=== PATIENT | female | born 1970 | race Two or more races ===

== ENCOUNTER 2017-05-22 10:13 | Emergency (ER) | payer SELFPAY ==
[2017-05-22 10:45] LABS: ADD MAN DIFF? NO
[2017-05-22] MEDS: ONDANSETRON PF 4 MG/2 ML VIAL. IV ×2 (10:53)
[2017-05-22] MEDS: fentaNYL PF VIAL 100 MCG/2 ML VIAL IV ×2 (10:54)
[2017-05-22 10:56] LABS: ANION GAP 11 (6-14); BLOOD UREA NITROGEN 10 mg/dL (7-20); CARBON DIOXIDE 24 mmol/L (21-32); CHLORIDE 102 mmol/L (98-107); CREATININE 0.7 mg/dL (0.6-1.0); GFR 90.5; GLUCOSE 128 mg/dL (70-99); POTASSIUM 3.9 mmol/L (3.5-5.1); SODIUM 137 mmol/L (136-145)
[2017-05-22 10:57] LABS: LIPASE 92 U/L (73-393)
[2017-05-22 11:02] LABS: BASO # 0.1 x10^3/uL (0.0-0.2); BASO % 1 % (0-3); BILIRUBIN,URINE NEGATIVE (NEG); CLARITY,URINE CLEAR; COLOR,URINE YELLOW; EOS # 0.2 x10^3/uL (0.0-0.7); EOS % 2 % (0-3); GLUCOSE,URINE NEGATIVE (NEG); HEMATOCRIT 41.9 % (36.0-47.0); HEMOGLOBIN 14.4 g/dL (12.0-15.5); LYMPH # 2.6 x10^3/uL (1.0-4.8); LYMPH % 26 % (24-48); MEAN CORPUSCULAR HEMOGLOBIN 32 pg (25-35); MEAN CORPUSCULAR HGB CONC 34 g/dL (31-37); MEAN CORPUSCULAR VOLUME 94 fL (79-100); MONO # 0.6 x10^3/uL (0.0-1.1); MONO % 6 % (0-9); NEUT # 6.8 x10^3uL (1.8-7.7); NEUT % 66 % (31-73); NITRITE,URINE NEGATIVE (NEG); PH,URINE 5.5; PLATELET COUNT 307 x10^3/uL (140-400); PROTEIN,URINE NEGATIVE (NEG-TRACE); RED BLOOD COUNT 4.45 x10^6/uL (3.50-5.40); UROBILINOGEN,URINE 0.2 mg/dL (0.2 mg/dL); WHITE BLOOD COUNT 10.3 x10^3/uL (4.0-11.0)
[2017-05-22 11:11] LABS: BACTERIA,URINE FEW /HPF (0-FEW); RBC,URINE 0 /HPF (0-2); SQUAMOUS EPITHELIAL CELL,UR MANY /LPF; WBC,URINE 0 /HPF (0-4)
[2017-05-22] MEDS: IOHEXOL 300 MG/ML 100ML VIAL. IV ×2 (12:00)
[2017-05-22] MEDS ORDERED: CONTRAST GIVEN MC ×2 (12:00)
[2017-05-22] MEDS: IV NORMAL SALINE 1000ML BAG 1,000 ML IV ×2 (12:19)
[2017-05-24 14:21] LABS: CHLAMYDIA PROBE Negative (Negative); GC PROBE Negative (Negative)
== END 2017-05-22 15:21 | disposition home or self-care (01) ==
LOC: ER 10:13
DX: N76.0 Acute vaginitis (principal); B96.89 Other specified bacterial agents as the cause of diseases classified elsewhere; Z98.51 Tubal ligation status
CPT/HCPCS: 36415; 74177; 80048; 81001; 83690; 85025; 87491; 87591; 93005; 96361; 96374; 96375; 99285-25; J2405; J3010; J7030; Q0111; Q9967

== ENCOUNTER 2019-01-18 21:03 | Emergency (ER) | payer SELFPAY ==
[~2019-01-18] VITALS: Ht 142.2 cm; Wt 90.7 kg
[~2019-01-18 21:03] MED LIST: METR500T PO
[2019-01-18 21:15] VITALS: BP 132/67
[2019-01-18 21:48] LABS: BASO # 0.1 x10^3/uL (0.0-0.2); BASO % 1 % (0-3); EOS # 0.3 x10^3/uL (0.0-0.7); EOS % 3 % (0-3); HEMATOCRIT 37.1 % (36.0-47.0); HEMOGLOBIN 12.5 g/dL (12.0-15.5); LYMPH # 2.8 x10^3/uL (1.0-4.8); LYMPH % 32 % (24-48); MEAN CORPUSCULAR HEMOGLOBIN 31 pg (25-35); MEAN CORPUSCULAR HGB CONC 34 g/dL (31-37); MEAN CORPUSCULAR VOLUME 93 fL (79-100); MONO # 0.7 x10^3/uL (0.0-1.1); MONO % 9 % (0-9); NEUT # 4.9 x10^3/uL (1.8-7.7); NEUT % 55 % (31-73); PLATELET COUNT 297 x10^3/uL (140-400); RED CELL DISTRIBUTION WIDTH 14.3 % (11.5-14.5); WHITE BLOOD COUNT 8.8 x10^3/uL (4.0-11.0)
[2019-01-18 21:57] LABS: PROTHROMBIN TIME PATIENT 12.6 SEC (11.7-14.0)
[2019-01-18 21:59] LABS: CALCIUM 8.8 mg/dL (8.5-10.1); CREATININE 0.6 mg/dL (0.6-1.0); GFR 107.2; POTASSIUM 3.4 mmol/L (3.5-5.1)
[2019-01-18] MEDS ORDERED: ASPIRIN CHEWABLE 81 MG TABLET. PO ONE (22:00)
[2019-01-18 22:05] LABS: ALBUMIN 3.3 g/dL (3.4-5.0); ALBUMIN/GLOBULIN RATIO 0.8 (1.0-1.7); TOTAL BILIRUBIN 0.2 mg/dL (0.2-1.0); TOTAL PROTEIN 7.6 g/dL (6.4-8.2)
[2019-01-18] MEDS ORDERED: ATOR10TA60 PO (22:24)
[2019-01-18 22:33] LABS: BILIRUBIN,URINE NEGATIVE (NEG); CLARITY,URINE CLEAR; COLOR,URINE YELLOW; NITRITE,URINE NEGATIVE (NEG); PROTEIN,URINE NEGATIVE (NEG-TRACE); UROBILINOGEN,URINE 0.2 mg/dL (0.2 mg/dL)
[2019-01-18 22:38] LABS: SQUAMOUS EPITHELIAL CELL,UR FEW /LPF
[2019-01-18 22:39] LABS: BACTERIA,URINE FEW /HPF (0-FEW); RBC,URINE 0 /HPF (0-2); WBC,URINE 0 /HPF (0-4)
--- NOTE | 2019-01-18 23:26 | RAD ---
AP portable chest radiograph 01/18/2019 Clinical History: Chest pain with cough and shortness of breath for 3 days. An AP erect portable digital radiograph of the chest was obtained. No previous studies are available for comparison. The cardiac silhouette is borderline enlarged. The thoracic aorta is mildly tortuous. No acute pulmonary infiltrate is seen. No pleural effusion or pneumothorax is noted. Degenerative changes are seen involving the thoracic spine. IMPRESSION: No acute abnormality is seen. Electronically signed by: Waylon Gonzalez MD (01/18/2019 11:22 PM) [facility]
--- NOTE | 2019-01-18 23:39 | PHYS DOC ---
Past Medical History Past Medical History: High Cholesterol, Kidney Stone Past Surgical History: Alcohol Use: None Drug Use: None Adult General Chief Complaint Chief Complaint: CHEST PAIN HPI HPI Patient is a 48 year old female presents to the due to chief complaint of chest pain radiating to her left arm. Patient states that the symptoms and present for the last 3 days. Patient states that the symptoms are constant and nothing makes it better or worse. Patient does service she has a history of high cholesterol and has family history of cardiac disease. Patient denies being an active smoker. Patient denies shortness of breath, sweating, nausea. Review of Systems Review of Systems Constitutional: Denies fever or chills HENT: Denies nasal congestion, sore throat, sinus tenderness Respiratory: Denies cough or shortness of breath Cardiovascular: Complains of chest pain radiating to her left arm GI: Denies abdominal pain, nausea, vomiting or diarrhea : Denies dysuria or hematuria Musculoskeletal: Denies back pain or joint pain Skin: Denies rash or skin lesions Neurologic: Denies headache, focal weakness or sensory changes Complete systems were reviewed and found to be within normal limits, except as documented in this note. Current Medications Current Medications Current Medications Medications (Trade) Dose Ordered Sig/Sophie Start Time Stop Time Status Last Admin Dose Admin Aspirin (Children'S Aspirin) 324 mg 1X ONCE 01/18/19 22:00 01/18/19 22:01 DC 01/18/19 21:55 324 MG Allergies Allergies Allergies Coded Allergies Type Severity Reaction Last Updated Verified No Known Drug Allergies 05/22/17 No Physical Exam Physical Exam Constitutional: Well developed, well nourished, no acute distress, non-toxic appearance. [] HENT: Normocephalic, atraumatic Eyes: PERRLA, EOMI Neck: Normal range of motion, no tenderness, supple Cardiovascular:Heart rate regular rhythm, no murmur [] Lungs & Thorax: Bilateral breath sounds clear to auscultation [] Abdomen: Bowel sounds normal, soft, no tenderness Extremities: No tenderness, no cyanosis, no clubbing, ROM intact Neurologic: Alert and oriented X 3 Current Patient Data Vital Signs Vital Signs Date Time Temp Pulse Resp B/P (MAP) Pulse Ox O2 Delivery O2 Flow Rate FiO2 01/18/19 21:15 97.9 82 20 132/67 (88) 99 Room Air 97.9 Lab Values Laboratory Tests Test 01/18/19 21:30 01/18/19 22:25 White Blood Count 8.8 x10^3/uL (4.0-11.0) Red Blood Count 4.00 x10^6/uL (3.50-5.40) Hemoglobin 12.5 g/dL (12.0-15.5) Hematocrit 37.1 % (36.0-47.0) Mean Corpuscular Volume 93 fL (79-100) Mean Corpuscular Hemoglobin 31 pg (25-35) Mean Corpuscular Hemoglobin Concent 34 g/dL (31-37) Red Cell Distribution Width 14.3 % (11.5-14.5) Platelet Count 297 x10^3/uL (140-400) Neutrophils (%) (Auto) 55 % (31-73) Lymphocytes (%) (Auto) 32 % (24-48) Monocytes (%) (Auto) 9 % (0-9) Eosinophils (%) (Auto) 3 % (0-3) Basophils (%) (Auto) 1 % (0-3) Neutrophils # (Auto) 4.9 x10^3/uL (1.8-7.7) Lymphocytes # (Auto) 2.8 x10^3/uL (1.0-4.8) Monocytes # (Auto) 0.7 x10^3/uL (0.0-1.1) Eosinophils # (Auto) 0.3 x10^3/uL (0.0-0.7) Basophils # (Auto) 0.1 x10^3/uL (0.0-0.2) Prothrombin Time 12.6 SEC (11.7-14.0) Prothrombin Time INR 1.0 (0.8-1.1) Sodium Level 143 mmol/L (136-145) Potassium Level 3.4 mmol/L (3.5-5.1) L Chloride Level 106 mmol/L (98-107) Carbon Dioxide Level 29 mmol/L (21-32) Anion Gap 8 (6-14) Blood Urea Nitrogen 16 mg/dL (7-20) Creatinine 0.6 mg/dL (0.6-1.0) Estimated GFR (Cockcroft-Gault) 107.2 BUN/Creatinine Ratio 27 (6-20) H Glucose Level 122 mg/dL (70-99) H Calcium Level 8.8 mg/dL (8.5-10.1) Total Bilirubin 0.2 mg/dL (0.2-1.0) Aspartate Amino Transferase (AST) 30 U/L (15-37) Alanine Aminotransferase (ALT) 42 U/L (14-59) Alkaline Phosphatase 163 U/L (46-116) H Troponin I Quantitative < 0.017 ng/mL (0.000-0.055) Total Protein 7.6 g/dL (6.4-8.2) Albumin 3.3 g/dL (3.4-5.0) L Albumin/Globulin Ratio 0.8 (1.0-1.7) L Lipase 137 U/L (73-393) Urine Collection Type Unknown Urine Color Yellow Urine Clarity Clear Urine pH 7.0 Urine Specific [place] 1.010 Urine Protein Negative mg/dL (NEG-TRACE) Urine Glucose (UA) Negative mg/dL (NEG) Urine Ketones (Stick) Negative mg/dL (NEG) Urine Blood Negative (NEG) Urine Nitrite Negative (NEG) Urine Bilirubin Negative (NEG) Urine Urobilinogen Dipstick 0.2 mg/dL (0.2 mg/dL) Urine Leukocyte Esterase Negative (NEG) Urine RBC 0 /HPF (0-2) Urine WBC 0 /HPF (0-4) Urine Squamous Epithelial Cells Few /LPF Urine Bacteria Few /HPF (0-FEW) Laboratory Tests 01/18/19 21:30 Laboratory Tests 01/18/19 21:30 EKG EKG EKG interpretation: HR: 73 Sinus rhythm Regular intervals Normal axis Nonspecific ST changes No STEMI Radiology/Procedures Radiology/Procedures Ordered chest x-ray Impressions: Chest x-ray shows no acute disease. Course & Med Decision Making Course & Med Decision Making Pertinent Labs and Imaging studies reviewed. (See chart for details) Ordered labs, chest x-ray, EKG, aspirin. EKG does not show any acute changes. Vital signs stable. Labs are within normal limits. Troponin is negative. Chest x-ray shows no acute disease. Discussed with patient about admission for stress test. Patient is already available to go home and follow up with her physician. Discussed second troponin with patient and family. Patient again refuses and wants to go home. Discussed results and plan of care with patient. Patient is instructed to follow up with PCP in one to 2 days. Appropriate discharge instructions given to patient to return to the ED or to seek immediate medical evaluation. Dragon Disclaimer Dragon Disclaimer This electronic medical record was generated, in whole or in part, using a voice recognition dictation system. Departure Departure Impression: Primary Impression: Chest pain Disposition: 01 HOME, SELF-CARE Condition: IMPROVED Referrals: NO PCP (PCP) Patient Instructions: Chest Pain (Nonspecific) Additional Instructions: Appropriate discharge instructions given to patient to return to ED or to seek immediate medical evaluation. Patient instructed to return to ED if symptoms worsen or if any concerns. Patient follow-up with PCP in one to 2 days. CHANI MCGRATH DO Jan 18, 2019 23:39
--- NOTE | 2019-01-19 06:54 | EKG ---
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
== END 2019-01-18 23:50 | disposition home or self-care (01) ==
LOC: ER 21:03
DX: R07.89 Other chest pain (principal); M79.602 Pain in left arm; E78.00 Pure hypercholesterolemia, unspecified; F17.200 Nicotine dependence, unspecified, uncomplicated
CPT/HCPCS: 36415; 71045; 80053; 81001; 83690; 84484; 85025; 85610; 93005; 99285-25